=== PATIENT | male | born 1985 | race Caucasian/White ===

== ENCOUNTER 2017-03-23 19:54 | Emergency (ER) | payer OTHER ==
[~2017-03-23] VITALS: Ht 185.4 cm; Wt 81.4 kg
[2017-03-23] MEDS ORDERED: ESCI10TA PO (20:05)
[2017-03-23] MEDS ORDERED: PERTUSS(ACELL),DIPH,TET VAC/PF 0.5 ML VIAL IM ONE (22:30)
[2017-03-23] MEDS ORDERED: POVIDONE-IODINE 10% 15 ML SOLUTION UD TP ONE (22:30)
[2017-03-23] MEDS ORDERED: BACITRACIN 0.9 GM PACKET OINTMENT TP ONE (22:30)
[2017-03-23] MEDS ORDERED: LIDOCAINE HCL 1% 10 ML VIAL INJ ONE (22:30)
[2017-03-23] MEDS ORDERED: IBUPROFEN 800 MG TABLET PO ONE (22:30)
[2017-03-23 23:22] VITALS: BP 123/89
== END 2017-03-23 23:23 | disposition home or self-care (01) ==
LOC: EMS 19:56
DX: S01.81XA Laceration without foreign body of other part of head, initial encounter (principal); W22.8XXA Striking against or struck by other objects, initial encounter; Y93.18 Activity, surfing, windsurfing and boogie boarding; Y92.89 Other specified places as the place of occurrence of the external cause; Y99.8 Other external cause status
CPT/HCPCS: 12013; 90471; 90715; 99283; J3490